=== PATIENT | male | born 1990 | race Two or more races ===

== ENCOUNTER 2021-05-02 13:48 | Inpatient (IN) | payer MEDICAID ==
[~2021-05-02] VITALS: Ht 185.4 cm; Wt 142.2 kg
[2021-05-02] MEDS ORDERED: SODIUM CHLORIDE 0.9% 1,000 ML IV ONE ×2 (14:30→16:45)
[2021-05-02] MEDS ORDERED: ONDANSETRON HCL 4 MG/2 ML VIAL IVP ONE (14:30)
[2021-05-02] MEDS ORDERED: BUPRENORPHINE HCL/NALOXONE HCL 8-2 MG SUBLINGUAL TABLET SL ONE (14:30)
[2021-05-02 14:48] LABS: APPEARANCE,URINE CLEAR (CLEAR); BILIRUBIN,URINE NEGATIVE (NEGATIVE); GLUCOSE, URINE (UA) NEGATIVE (NEGATIVE); KETONES,URINE NEGATIVE (NEGATIVE); LEUKOCYTE ESTERASE ,URINE NEGATIVE (NEGATIVE); NITRATE,URINE NEGATIVE (NEGATIVE); OCCULT BLOOD,URINE NEGATIVE (NEGATIVE); PROTEIN,URINE NEGATIVE (NEGATIVE)
[2021-05-02 14:52] LABS: BASOPHILS % (AUTO) 0.6 % (0.0-2.0); EOSINOPHILS % (AUTO) 1.7 % (1.0-6.0); HEMOGLOBIN 13.8 g/dL (13.5-17.5); LYMPHOCYTES # (AUTO) 1.7 K/uL (1.0-4.8); LYMPHOCYTES % (AUTO) 25.2 % (22.0-44.0); MEAN CORPUSCULAR HGB CONC 33.7 G/dL (31.0-37.0); MEAN CORPUSCULAR VOLUME 89 fL (80-100); MONOCYTES # (AUTO) 0.6 K/uL (0.1-1.0); MONOCYTES % (AUTO) 9.1 % (2.0-9.0); NEUTROPHILS # (AUTO) 4.3 K/uL (1.8-7.7); NEUTROPHILS % (AUTO) 63.4 % (40.0-70.0); PLATELET COUNT (AUTO) 255 K/uL (150-450); RED BLOOD CELL COUNT(AUTO) 4.62 MIL/uL (4.50-5.90); RED CELL DISTRIBUTION WIDTH 13.8 % (11.5-14.5)
[2021-05-02 14:53] LABS: AMPHET/METH SCREEN,URINE POSITIVE (NEGATIVE); BARBITURATE SCREEN, URINE NEGATIVE (NEGATIVE); BENZODIAZEPINES SCREEN,URINE NEGATIVE (NEGATIVE); CANNABINOID SCREEN,URINE POSITIVE (NEGATIVE); COCAINE SCREEN,URINE NEGATIVE (NEGATIVE); METHADONE SCREEN, URINE NEGATIVE (NEGATIVE); OPIATE SCREEN,URINE NEGATIVE (NEGATIVE)
[2021-05-02 14:54] LABS: PHENCYCLIDINE SCREEN,URINE NEGATIVE (NEGATIVE)
[2021-05-02 14:56] LABS: BACTERIA,URINE None Seen /HPF (None Seen); RBC,URINE None Seen /HPF (0-2); WBC,URINE None Seen /HPF (0-5)
[2021-05-02 15:03] LABS: ANION GAP 5 mmol/L (8-16); CALCIUM, TOTAL 9.2 mg/dL (8.8-10.5); CARBON DIOXIDE 33 mmol/L (22-29); CHLORIDE 101 mmol/L (98-107); CREATININE 0.98 mg/dL (0.60-1.30); GLOMERULAR FILTR. RATE CALC > 60 mL/min (>60); GLUCOSE,RANDOM 92 mg/dL (70-110); POTASSIUM 4.1 mmol/L (3.5-5.1); SODIUM SERUM 139 mmol/L (136-145); UREA NITROGEN, BLOOD 14 mg/dL (7-18)
[2021-05-02 15:09] LABS: ALANINE AMINOTRANSFERASE 71 U/L (12-78); ALBUMIN 3.4 g/dL (3.4-5.0); ALKALINE PHOSPHATASE 90 U/L (46-116); ASPARTATE AMINOTRANSFERASE 29 U/L (15-37); BILIRUBIN,TOTAL 0.3 mg/dL (0.1-1.0); TOTAL PROTEIN, SERUM 7.4 g/dL (6.4-8.2)
[2021-05-02] MEDS ORDERED: DOXYCYCLINE HYCLATE 100 MG TABLET PO ONE (16:30)
[2021-05-02] MEDS ORDERED: CEPHALEXIN MONOHYDRATE 500 MG CAPSULE PO ONE (16:30)
[2021-05-02] MEDS: LORazepam 2 MG TABLET PO PRN (17:48)
[2021-05-02] MEDS: HALOPERIDOL 5 MG TABLET PO PRN (17:48)
[2021-05-03 02:01] LABS: CHOL/HDL RATIO 2.8 (4.2-7.3); CHOLESTEROL 137 mg/dL (131-200); HDL CHOLESTEROL 49 mg/dL (40-60); LDL CHOL (CALC.) 76 mg/dL (0-130); TRIGLYCERIDES 58 mg/dL (15-150)
[2021-05-03 05:49] LABS: COVID AG,FIA SOURCE NASOPHARYNGEAL
[2021-05-03 20:25] VITALS: BP 128/95
[2021-05-03] MEDS ORDERED: INFLUENZA VIRUS VACCINE QVS 2021-22 (6MO+)/PF 60 MCG/0.5 ML SYRINGE IM. ONE (20:30)
[2021-05-04] MEDS: NICOTINE 7 MG/24 HOUR PATCH TD PRN (08:32)
[2021-05-04] MEDS: HALOPERIDOL 5 MG TABLET PO PRN ×2 (08:32→15:47)
[2021-05-04] MEDS: LORazepam 2 MG TABLET PO PRN ×2 (08:32→17:25)
[2021-05-04] MEDS: CEPHALEXIN MONOHYDRATE 250 MG CAPSULE PO SCH ×3 (08:32→17:23)
[2021-05-04] MEDS: SULFAMETHOX/TRIMETH DS 800-160 MG/TABLET PO SCH ×2 (08:33→17:20)
[2021-05-04 08:58] VITALS: BP 133/74
[2021-05-04] MEDS ORDERED: NICOTINE 7 MG/24 HOUR PATCH TD SCH (09:00)
[2021-05-04] MEDS ORDERED: OLAN10 PO (11:46)
[2021-05-04] MEDS ORDERED: BUPR100T6 PO (11:46)
[2021-05-04] MEDS ORDERED: PERMETHRIN 5% 60 GM CREAM TP ONE (12:00)
[2021-05-04] MEDS: BuPROPion HCL XL 150 MG ER TABLET PO SCH (14:27)
[2021-05-04 16:32] VITALS: BP 130/83
[2021-05-04] MEDS: ZOLPIDEM TARTRATE 10 MG TABLET PO PRN (20:19)
[2021-05-04] MEDS: OLANZapine 10 MG TABLET PO SCH (20:19)
[2021-05-05 08:17] VITALS: BP 134/85
[2021-05-05] MEDS: CEPHALEXIN MONOHYDRATE 250 MG CAPSULE PO SCH ×3 (08:44→16:22)
[2021-05-05] MEDS: BuPROPion HCL XL 150 MG ER TABLET PO SCH (08:44)
[2021-05-05] MEDS: HALOPERIDOL 5 MG TABLET PO PRN ×2 (08:45→16:22)
[2021-05-05] MEDS: SULFAMETHOX/TRIMETH DS 800-160 MG/TABLET PO SCH ×2 (08:45→16:22)
[2021-05-05] MEDS: LORazepam 2 MG TABLET PO PRN (08:45)
[2021-05-05 16:00] VITALS: BP 130/87
[2021-05-05] MEDS: OLANZapine 10 MG TABLET PO SCH (20:20)
[2021-05-06 08:10] VITALS: BP 127/82
[2021-05-06] MEDS: CEPHALEXIN MONOHYDRATE 250 MG CAPSULE PO SCH ×3 (09:45→16:02)
[2021-05-06] MEDS: MULTIVITAMINS WITH MINERALS, THERAPEUTIC TABLET PO SCH (09:45)
[2021-05-06] MEDS: BuPROPion HCL XL 150 MG ER TABLET PO SCH (09:45)
[2021-05-06] MEDS: SULFAMETHOX/TRIMETH DS 800-160 MG/TABLET PO SCH ×2 (09:45→16:02)
[2021-05-06] MEDS: HALOPERIDOL 5 MG TABLET PO PRN ×2 (09:45→16:02)
[2021-05-06] MEDS: LORazepam 2 MG TABLET PO PRN ×2 (09:45→16:02)
[2021-05-06] MEDS ORDERED: CloNIDine HCL 0.1 MG TABLET PO PRN (16:15)
[2021-05-06] MEDS ORDERED: MAGNESIUM HYDROXIDE SUSPENSION 30 ML UDCUP PO PRN (16:15)
[2021-05-06] MEDS ORDERED: LOPERAMIDE HCL 2 MG CAPSULE PO PRN (16:15)
[2021-05-06] MEDS ORDERED: DOCUSATE SODIUM 100 MG CAPSULE PO PRN (16:15)
[2021-05-06] MEDS ORDERED: PETROLATUM,WHITE 28 GM JELLY TP PRN (16:15)
[2021-05-06] MEDS ORDERED: GuaiFENesin/D-METHORPHAN [SUGAR-FREE] 200-20MG/10 ML SYRUP UDCUP PO PRN (16:15)
[2021-05-06] MEDS ORDERED: MAG HYDROX/AL HYDROX/SIMETH ES 30 ML SUSPENSION UDCUP PO PRN (16:15)
[2021-05-06] MEDS ORDERED: IBUPROFEN 400 MG TABLET PO PRN (16:15)
[2021-05-06] MEDS ORDERED: ALBUTEROL SULFATE HFA 90 MCG/PUFF 8 GM INHALER IH PRN (16:15)
[2021-05-06] MEDS ORDERED: ACETAMINOPHEN 325 MG TABLET PO PRN (16:15)
[2021-05-06] MEDS ORDERED: ONDANSETRON HCL 4 MG TABLET PO PRN (16:15)
[2021-05-06 16:50] VITALS: BP 126/71
[2021-05-06] MEDS: OLANZapine 10 MG TABLET PO SCH (20:16)
[2021-05-06] MEDS: ZOLPIDEM TARTRATE 10 MG TABLET PO PRN (20:16)
[2021-05-07 08:14] VITALS: BP 128/76
[2021-05-07] MEDS: HALOPERIDOL 5 MG TABLET PO PRN ×2 (08:21→16:34)
[2021-05-07] MEDS: SULFAMETHOX/TRIMETH DS 800-160 MG/TABLET PO SCH ×2 (08:21→16:34)
[2021-05-07] MEDS: BuPROPion HCL XL 150 MG ER TABLET PO SCH (08:21)
[2021-05-07] MEDS: MULTIVITAMINS WITH MINERALS, THERAPEUTIC TABLET PO SCH (08:21)
[2021-05-07] MEDS: CEPHALEXIN MONOHYDRATE 250 MG CAPSULE PO SCH ×3 (08:21→16:34)
[2021-05-07] MEDS: LORazepam 2 MG TABLET PO PRN ×2 (08:21→21:16)
[2021-05-07 16:10] VITALS: BP 127/73
[2021-05-07] MEDS: OLANZapine 10 MG TABLET PO SCH (21:16)
[2021-05-08 08:30] VITALS: BP 132/78
[2021-05-08] MEDS: SULFAMETHOX/TRIMETH DS 800-160 MG/TABLET PO SCH ×2 (08:44→16:05)
[2021-05-08] MEDS: MULTIVITAMINS WITH MINERALS, THERAPEUTIC TABLET PO SCH (08:44)
[2021-05-08] MEDS: CEPHALEXIN MONOHYDRATE 250 MG CAPSULE PO SCH ×3 (08:44→16:05)
[2021-05-08] MEDS: BuPROPion HCL XL 150 MG ER TABLET PO SCH (08:44)
[2021-05-08] MEDS: HALOPERIDOL 5 MG TABLET PO PRN ×2 (08:44→16:05)
[2021-05-08] MEDS: LORazepam 2 MG TABLET PO PRN (16:05)
[2021-05-08 16:19] VITALS: BP 138/75
[2021-05-08] MEDS: NICOTINE 7 MG/24 HOUR PATCH TD PRN (17:15)
[2021-05-08] MEDS: OLANZapine 10 MG TABLET PO SCH (20:14)
[2021-05-09 08:00] VITALS: BP 131/76
[2021-05-09] MEDS: BuPROPion HCL XL 150 MG ER TABLET PO SCH (08:49)
[2021-05-09] MEDS: MULTIVITAMINS WITH MINERALS, THERAPEUTIC TABLET PO SCH (08:49)
[2021-05-09] MEDS: CEPHALEXIN MONOHYDRATE 250 MG CAPSULE PO SCH ×3 (08:49→15:59)
[2021-05-09] MEDS: SULFAMETHOX/TRIMETH DS 800-160 MG/TABLET PO SCH ×2 (08:49→15:59)
[2021-05-09] MEDS: HALOPERIDOL 5 MG TABLET PO PRN ×2 (08:51→15:59)
[2021-05-09] MEDS: LORazepam 2 MG TABLET PO PRN ×2 (08:51→16:01)
[2021-05-09] MEDS: NICOTINE 7 MG/24 HOUR PATCH TD PRN (11:36)
[2021-05-09 12:41] LABS: COVID AG,FIA SOURCE NASOPHARYNGEAL
[2021-05-09 16:30] VITALS: BP 122/73
[2021-05-09] MEDS: OLANZapine 10 MG TABLET PO SCH (20:16)
[2021-05-10] MEDS: BuPROPion HCL XL 150 MG ER TABLET PO SCH (08:20)
[2021-05-10] MEDS: NICOTINE 7 MG/24 HOUR PATCH TD PRN (08:20)
[2021-05-10] MEDS: CEPHALEXIN MONOHYDRATE 250 MG CAPSULE PO SCH ×3 (08:20→16:20)
[2021-05-10] MEDS: SULFAMETHOX/TRIMETH DS 800-160 MG/TABLET PO SCH ×2 (08:20→16:20)
[2021-05-10] MEDS: MULTIVITAMINS WITH MINERALS, THERAPEUTIC TABLET PO SCH (08:20)
[2021-05-10 08:22] VITALS: BP 116/75
[2021-05-10 11:35] VITALS: BP 128/75
[2021-05-10] MEDS: LORazepam 2 MG TABLET PO PRN (11:44)
[2021-05-10 13:00] VITALS: BP 114/70
[2021-05-10 16:13] VITALS: BP 136/71
[2021-05-10] MEDS: HALOPERIDOL 5 MG TABLET PO PRN (16:20)
[2021-05-10] MEDS: ZOLPIDEM TARTRATE 10 MG TABLET PO PRN (20:17)
[2021-05-10] MEDS: OLANZapine 10 MG TABLET PO SCH (20:17)
[2021-05-11] MEDS: BuPROPion HCL XL 150 MG ER TABLET PO SCH (08:01)
[2021-05-11] MEDS: SULFAMETHOX/TRIMETH DS 800-160 MG/TABLET PO SCH ×2 (08:01→16:00)
[2021-05-11] MEDS: HALOPERIDOL 5 MG TABLET PO PRN ×2 (08:01→16:00)
[2021-05-11] MEDS: MULTIVITAMINS WITH MINERALS, THERAPEUTIC TABLET PO SCH (08:01)
[2021-05-11] MEDS: CEPHALEXIN MONOHYDRATE 250 MG CAPSULE PO SCH ×3 (08:01→16:00)
[2021-05-11 08:14] VITALS: BP 110/73
[2021-05-11] MEDS: NICOTINE 7 MG/24 HOUR PATCH TD PRN (09:39)
[2021-05-11] MEDS: LORazepam 2 MG TABLET PO PRN (13:59)
[2021-05-11] MEDS: NICOTINE 14 MG/24 HOUR PATCH TD PRN (15:59)
[2021-05-11 16:19] VITALS: BP 137/96
[2021-05-11] MEDS: OLANZapine 10 MG TABLET PO SCH (20:20)
[2021-05-11] MEDS: ZOLPIDEM TARTRATE 10 MG TABLET PO PRN (20:20)
[2021-05-12] MEDS: SULFAMETHOX/TRIMETH DS 800-160 MG/TABLET PO SCH (07:49)
[2021-05-12] MEDS: BuPROPion HCL XL 150 MG ER TABLET PO SCH (07:49)
[2021-05-12] MEDS: CEPHALEXIN MONOHYDRATE 250 MG CAPSULE PO SCH ×2 (07:49→11:54)
[2021-05-12] MEDS: MULTIVITAMINS WITH MINERALS, THERAPEUTIC TABLET PO SCH (07:49)
[2021-05-12] MEDS: NICOTINE 14 MG/24 HOUR PATCH TD PRN (07:51)
[2021-05-12 08:10] VITALS: BP 102/39
[2021-05-12] MEDS: LORazepam 2 MG TABLET PO PRN (11:48)
[2021-05-12] MEDS ORDERED: OLAN10 PO (13:02)
[2021-05-12] MEDS ORDERED: BUPR-49 PO (13:02)
[2021-05-12] MEDS ORDERED: CEPH250 PO (14:01)
[2021-05-12] MEDS ORDERED: SULF-261 PO (14:02)
== END 2021-05-12 15:58 | disposition home or self-care (01) | DRG 750 ==
LOC: EMS 13:54 → 3EC 05-03 17:11
DX: F25.1 Schizoaffective disorder, depressive type (principal); R45.851 Suicidal ideations; L02.416 Cutaneous abscess of left lower limb; E86.0 Dehydration; B86 Scabies; F10.10 Alcohol abuse, uncomplicated; F12.10 Cannabis abuse, uncomplicated; F15.10 Other stimulant abuse, uncomplicated; Z20.822 Contact with and (suspected) exposure to COVID-19; F17.200 Nicotine dependence, unspecified, uncomplicated; F31.9 Bipolar disorder, unspecified; L03.115 Cellulitis of right lower limb; Z59.00 Homelessness unspecified; Z79.899 Other long term (current) drug therapy; Z71.6 Tobacco abuse counseling; Z91.51 Personal history of suicidal behavior
CPT/HCPCS: 80053; 80061; 81001; 83036; 85025; 99285; G0480; J2405; J7030

== ENCOUNTER 2021-05-15 11:59 | Emergency (ER) | payer MEDICAID ==
[~2021-05-15] VITALS: Ht 185.4 cm; Wt 141.8 kg
[~2021-05-15 11:59] MED LIST: BUPR-49 PO; CEPH250 PO; OLAN10 PO; SULF-261 PO
[2021-05-15 12:45] LABS: BASOPHILS % (AUTO) 0.8 % (0.0-2.0); EOSINOPHILS % (AUTO) 0.7 % (1.0-6.0); HEMATOCRIT 40.5 % (41-53); HEMOGLOBIN 13.6 g/dL (13.5-17.5); LYMPHOCYTES % (AUTO) 14.9 % (22.0-44.0); MEAN CORPUSCULAR HEMOGLOBIN 29.8 pg (26.0-34.0); MEAN CORPUSCULAR HGB CONC 33.7 G/dL (31.0-37.0); MEAN CORPUSCULAR VOLUME 89 fL (80-100); MONOCYTES # (AUTO) 0.7 K/uL (0.1-1.0); MONOCYTES % (AUTO) 10.2 % (2.0-9.0); NEUTROPHILS # (AUTO) 4.8 K/uL (1.8-7.7); NEUTROPHILS % (AUTO) 73.4 % (40.0-70.0); PLATELET COUNT (AUTO) 216 K/uL (150-450); RED BLOOD CELL COUNT(AUTO) 4.57 MIL/uL (4.50-5.90); RED CELL DISTRIBUTION WIDTH 13.5 % (11.5-14.5)
[2021-05-15 12:57] LABS: ANION GAP 9 mmol/L (8-16); CALCIUM, TOTAL 8.3 mg/dL (8.8-10.5); CARBON DIOXIDE 30 mmol/L (22-29); CHLORIDE 104 mmol/L (98-107); CREATININE 0.96 mg/dL (0.60-1.30); GLOMERULAR FILTR. RATE CALC > 60 mL/min (>60); GLUCOSE,RANDOM 105 mg/dL (70-110); POTASSIUM 4.3 mmol/L (3.5-5.1); SODIUM SERUM 143 mmol/L (136-145); UREA NITROGEN, BLOOD 13 mg/dL (7-18)
[2021-05-15 13:03] LABS: ALANINE AMINOTRANSFERASE 84 U/L (12-78); ALBUMIN 3.3 g/dL (3.4-5.0); ALKALINE PHOSPHATASE 125 U/L (46-116); ASPARTATE AMINOTRANSFERASE 28 U/L (15-37); BILIRUBIN,TOTAL 0.3 mg/dL (0.1-1.0); TOTAL PROTEIN, SERUM 7.1 g/dL (6.4-8.2)
[2021-05-15 13:12] LABS: AMPHET/METH SCREEN,URINE POSITIVE (NEGATIVE); BARBITURATE SCREEN, URINE NEGATIVE (NEGATIVE); BENZODIAZEPINES SCREEN,URINE NEGATIVE (NEGATIVE); CANNABINOID SCREEN,URINE POSITIVE (NEGATIVE); COCAINE SCREEN,URINE NEGATIVE (NEGATIVE); METHADONE SCREEN, URINE NEGATIVE (NEGATIVE); OPIATE SCREEN,URINE NEGATIVE (NEGATIVE)
[2021-05-15 13:17] LABS: PHENCYCLIDINE SCREEN,URINE NEGATIVE (NEGATIVE)
[2021-05-15 14:59] VITALS: BP 138/75
[2021-05-15] MEDS ORDERED: IBUPROFEN 600 MG TABLET PO ONE (15:00)
== END 2021-05-15 15:40 | disposition home or self-care (01) ==
LOC: EMS 12:02
DX: F19.20 Other psychoactive substance dependence, uncomplicated (principal); F31.9 Bipolar disorder, unspecified; E86.0 Dehydration; F41.9 Anxiety disorder, unspecified; F17.210 Nicotine dependence, cigarettes, uncomplicated; F11.90 Opioid use, unspecified, uncomplicated; Z59.00 Homelessness unspecified; Z88.0 Allergy status to penicillin
CPT/HCPCS: 36415; 80053; 80307; 85025; 99283; G0480

== ENCOUNTER 2021-05-18 03:46 | Inpatient (IN) | payer MEDICAID ==
[~2021-05-18] VITALS: Ht 185.4 cm; Wt 142.0 kg
[2021-05-18] MEDS ORDERED: LORazepam 1 MG TABLET PO ONE (04:45)
[2021-05-18] MEDS ORDERED: BUPRENORPHINE HCL/NALOXONE HCL 8-2 MG SUBLINGUAL TABLET SL ONE (04:45)
[2021-05-18] MEDS ORDERED: DiphenhydrAMINE HCL 25 MG CAPSULE PO ONE (04:45)
[2021-05-18] MEDS ORDERED: OLANZapine 5 MG TABLET PO ONE (04:45)
[2021-05-18 04:52] LABS: COVID AG,FIA SOURCE NASOPHARYNGEAL
[2021-05-18 05:01] LABS: BASOPHILS % (AUTO) 0.8 % (0.0-2.0); EOSINOPHILS % (AUTO) 0.1 % (1.0-6.0); HEMATOCRIT 40.8 % (41-53); HEMOGLOBIN 14.1 g/dL (13.5-17.5); LYMPHOCYTES # (AUTO) 0.3 K/uL (1.0-4.8); LYMPHOCYTES % (AUTO) 8.2 % (22.0-44.0); MEAN CORPUSCULAR HEMOGLOBIN 29.7 pg (26.0-34.0); MEAN CORPUSCULAR HGB CONC 34.6 G/dL (31.0-37.0); MEAN CORPUSCULAR VOLUME 86 fL (80-100); MONOCYTES # (AUTO) 0.2 K/uL (0.1-1.0); NEUTROPHILS # (AUTO) 2.7 K/uL (1.8-7.7); NEUTROPHILS % (AUTO) 83.9 % (40.0-70.0); PLATELET COUNT (AUTO) 127 K/uL (150-450); RED BLOOD CELL COUNT(AUTO) 4.74 MIL/uL (4.50-5.90); RED CELL DISTRIBUTION WIDTH 13.1 % (11.5-14.5)
[2021-05-18 05:04] LABS: ANION GAP 11 mmol/L (8-16); CALCIUM, TOTAL 7.9 mg/dL (8.8-10.5); CARBON DIOXIDE 27 mmol/L (22-29); CHLORIDE 97 mmol/L (98-107); CREATININE 1.03 mg/dL (0.60-1.30); GLOMERULAR FILTR. RATE CALC > 60 mL/min (>60); GLUCOSE,RANDOM 101 mg/dL (70-110); POTASSIUM 3.9 mmol/L (3.5-5.1); SODIUM SERUM 135 mmol/L (136-145); UREA NITROGEN, BLOOD 10 mg/dL (7-18)
[2021-05-18 05:10] LABS: ALANINE AMINOTRANSFERASE 126 U/L (12-78); ALBUMIN 3.1 g/dL (3.4-5.0); ALKALINE PHOSPHATASE 103 U/L (46-116); ASPARTATE AMINOTRANSFERASE 77 U/L (15-37); BILIRUBIN,TOTAL 1.1 mg/dL (0.1-1.0); TOTAL PROTEIN, SERUM 7.1 g/dL (6.4-8.2)
[2021-05-18 09:03] VITALS: BP 139/85
[2021-05-18] MEDS ORDERED: DOCUSATE SODIUM 100 MG CAPSULE PO PRN (13:30)
[2021-05-18] MEDS ORDERED: MAGNESIUM HYDROXIDE SUSPENSION 30 ML UDCUP PO PRN (13:30)
[2021-05-18] MEDS ORDERED: ONDANSETRON HCL 4 MG TABLET PO PRN (13:30)
[2021-05-18] MEDS ORDERED: LOPERAMIDE HCL 2 MG CAPSULE PO PRN (13:30)
[2021-05-18] MEDS ORDERED: ALBUTEROL SULFATE HFA 90 MCG/PUFF 8 GM INHALER IH PRN (13:30)
[2021-05-18] MEDS ORDERED: PETROLATUM,WHITE 28 GM JELLY TP PRN (13:30)
[2021-05-18] MEDS ORDERED: CloNIDine HCL 0.1 MG TABLET PO PRN (13:30)
[2021-05-18] MEDS ORDERED: NICOTINE 14 MG/24 HOUR PATCH TD PRN (13:30)
[2021-05-18] MEDS ORDERED: MAG HYDROX/AL HYDROX/SIMETH ES 30 ML SUSPENSION UDCUP PO PRN (13:30)
[2021-05-18] MEDS ORDERED: GuaiFENesin/D-METHORPHAN [SUGAR-FREE] 200-20MG/10 ML SYRUP UDCUP PO PRN (13:30)
[2021-05-18] MEDS ORDERED: ACETAMINOPHEN 325 MG TABLET PO PRN (13:30)
[2021-05-18] MEDS ORDERED: INFLUENZA VIRUS VACCINE QVS 2021-22 (6MO+)/PF 60 MCG/0.5 ML SYRINGE IM. ONE (14:15)
[2021-05-18 16:10] VITALS: BP 137/69
[2021-05-18] MEDS: OLANZapine 10 MG TABLET PO SCH (20:56)
[2021-05-19] MEDS: BuPROPion HCL XL 150 MG ER TABLET PO SCH (09:00)
[2021-05-19 09:02] LABS: HEMOGLOBIN A1C 5.3 % (3.8-5.6)
[2021-05-19 09:07] LABS: CHOL/HDL RATIO 6.9 (4.2-7.3); THYROID STIMULATING HORMONE 2.6 uIU/mL (0.36-3.74)
[2021-05-19 11:17] VITALS: BP 132/70
[2021-05-19 16:22] VITALS: BP 104/60
[2021-05-19] MEDS: LORazepam 2 MG TABLET PO PRN (17:20)
[2021-05-19] MEDS: HALOPERIDOL 5 MG TABLET PO PRN (17:20)
[2021-05-19] MEDS: ZOLPIDEM TARTRATE 10 MG TABLET PO PRN (21:07)
[2021-05-19] MEDS: OLANZapine 10 MG TABLET PO SCH (21:07)
[2021-05-20 06:43] VITALS: BP 132/83
[2021-05-20 08:38] VITALS: BP 126/92
[2021-05-20] MEDS: BuPROPion HCL XL 150 MG ER TABLET PO SCH (09:37)
[2021-05-20] MEDS: LORazepam 2 MG TABLET PO PRN (09:37)
[2021-05-20] MEDS: HALOPERIDOL 5 MG TABLET PO PRN (09:37)
[2021-05-20 16:24] VITALS: BP 123/75
[2021-05-20] MEDS: OLANZapine 10 MG TABLET PO SCH (21:26)
[2021-05-21 06:10] VITALS: BP 128/79
[2021-05-21 08:37] VITALS: BP 131/68
[2021-05-21] MEDS: BuPROPion HCL XL 150 MG ER TABLET PO SCH (09:49)
[2021-05-21] MEDS: IBUPROFEN 400 MG TABLET PO PRN (12:25)
[2021-05-21] MEDS: LORazepam 2 MG TABLET PO PRN (12:30)
[2021-05-21 16:27] VITALS: BP 112/72
[2021-05-21] MEDS: OLANZapine 10 MG TABLET PO SCH (20:33)
[2021-05-21] MEDS: ZOLPIDEM TARTRATE 10 MG TABLET PO PRN (20:34)
[2021-05-22 02:27] VITALS: BP 130/68
[2021-05-22] MEDS: IBUPROFEN 400 MG TABLET PO PRN ×2 (06:40→15:55)
[2021-05-22 07:40] VITALS: BP 121/71
[2021-05-22] MEDS: BuPROPion HCL XL 150 MG ER TABLET PO SCH (08:21)
[2021-05-22] MEDS: LORazepam 2 MG TABLET PO PRN ×2 (08:33→15:43)
[2021-05-22 08:58] VITALS: BP 121/71
[2021-05-22] MEDS: HALOPERIDOL 5 MG TABLET PO PRN (15:43)
[2021-05-22 16:05] VITALS: BP 116/68
[2021-05-22] MEDS: OLANZapine 10 MG TABLET PO SCH (20:34)
[2021-05-22] MEDS: ZOLPIDEM TARTRATE 10 MG TABLET PO PRN (20:34)
[2021-05-23 06:06] VITALS: BP 119/75
[2021-05-23] MEDS: BuPROPion HCL XL 150 MG ER TABLET PO SCH (08:57)
[2021-05-23] MEDS: IBUPROFEN 400 MG TABLET PO PRN (09:25)
[2021-05-23] MEDS ORDERED: CYANOCOBALAMIN 1,000 MCG/ML VIAL IM ONE (15:15)
[2021-05-23] MEDS: HALOPERIDOL 5 MG TABLET PO PRN (16:05)
[2021-05-23] MEDS: LORazepam 2 MG TABLET PO PRN (16:05)
[2021-05-23 16:29] VITALS: BP 136/84
[2021-05-23] MEDS: OLANZapine 10 MG TABLET PO SCH (21:03)
[2021-05-23] MEDS: ZOLPIDEM TARTRATE 10 MG TABLET PO PRN (21:04)
[2021-05-24 00:53] VITALS: BP 124/86
[2021-05-24 08:28] VITALS: BP 141/82
[2021-05-24] MEDS: BuPROPion HCL XL 150 MG ER TABLET PO SCH (09:02)
[2021-05-24] MEDS: FOLIC ACID 1 MG TABLET PO SCH (09:02)
[2021-05-24] MEDS: LORazepam 2 MG TABLET PO PRN ×3 (09:03→21:39)
[2021-05-24] MEDS: HALOPERIDOL 5 MG TABLET PO PRN ×3 (09:03→21:39)
[2021-05-24] MEDS: THIAMINE 100 MG TABLET PO SCH (09:03)
[2021-05-24 16:21] VITALS: BP 130/75
[2021-05-24] MEDS: OLANZapine 10 MG TABLET PO SCH (21:30)
[2021-05-25 06:08] VITALS: BP 117/70
[2021-05-25 08:22] VITALS: BP 116/68
[2021-05-25] MEDS: FOLIC ACID 1 MG TABLET PO SCH (08:53)
[2021-05-25] MEDS: HALOPERIDOL 5 MG TABLET PO PRN ×2 (08:53→13:43)
[2021-05-25] MEDS: BuPROPion HCL XL 150 MG ER TABLET PO SCH (08:53)
[2021-05-25] MEDS: LORazepam 2 MG TABLET PO PRN ×2 (08:53→13:43)
[2021-05-25] MEDS: THIAMINE 100 MG TABLET PO SCH (08:53)
[2021-05-25 09:29] LABS: GLUCOMETER DEV NAME(LOC) POC.BV
[2021-05-25 16:23] VITALS: BP 111/62
[2021-05-25] MEDS: OLANZapine 10 MG TABLET PO SCH (20:41)
[2021-05-26 06:09] VITALS: BP 123/61
[2021-05-26] MEDS: FOLIC ACID 1 MG TABLET PO SCH (08:03)
[2021-05-26] MEDS: THIAMINE 100 MG TABLET PO SCH (08:03)
[2021-05-26] MEDS: BuPROPion HCL XL 150 MG ER TABLET PO SCH (08:03)
[2021-05-26] MEDS: LORazepam 2 MG TABLET PO PRN ×2 (08:03→12:43)
[2021-05-26] MEDS: HALOPERIDOL 5 MG TABLET PO PRN ×2 (08:05→12:43)
[2021-05-26 08:29] VITALS: BP 122/81
[2021-05-26] MEDS: IBUPROFEN 400 MG TABLET PO PRN (13:28)
[2021-05-26 16:17] VITALS: BP 113/66
[2021-05-26] MEDS: OLANZapine 10 MG TABLET PO SCH (20:51)
[2021-05-26] MEDS: ZOLPIDEM TARTRATE 10 MG TABLET PO PRN (20:51)
[2021-05-27] MEDS: THIAMINE 100 MG TABLET PO SCH (08:10)
[2021-05-27] MEDS: FOLIC ACID 1 MG TABLET PO SCH (08:11)
[2021-05-27] MEDS: BuPROPion HCL XL 150 MG ER TABLET PO SCH (08:11)
[2021-05-27] MEDS: LORazepam 2 MG TABLET PO PRN ×3 (08:14→18:29)
[2021-05-27] MEDS: HALOPERIDOL 5 MG TABLET PO PRN ×3 (08:14→18:29)
[2021-05-27 08:35] VITALS: BP 82/135
[2021-05-27 16:51] VITALS: BP 122/78
[2021-05-27] MEDS: IBUPROFEN 400 MG TABLET PO PRN (18:29)
[2021-05-27] MEDS: OLANZapine 10 MG TABLET PO SCH (20:25)
[2021-05-27] MEDS: ZOLPIDEM TARTRATE 10 MG TABLET PO PRN (20:25)
[2021-05-28 05:26] VITALS: BP 114/64
[2021-05-28] MEDS: BuPROPion HCL XL 150 MG ER TABLET PO SCH (08:26)
[2021-05-28] MEDS: THIAMINE 100 MG TABLET PO SCH (08:26)
[2021-05-28] MEDS: FOLIC ACID 1 MG TABLET PO SCH (08:26)
[2021-05-28] MEDS: LORazepam 2 MG TABLET PO PRN ×2 (08:30→13:38)
[2021-05-28] MEDS: HALOPERIDOL 5 MG TABLET PO PRN ×2 (08:30→13:38)
[2021-05-28 08:38] VITALS: BP 122/72
[2021-05-28 16:19] VITALS: BP 120/70
[2021-05-28] MEDS: OLANZapine 10 MG TABLET PO SCH (20:25)
[2021-05-28] MEDS: ZOLPIDEM TARTRATE 10 MG TABLET PO PRN (20:26)
[2021-05-29 03:27] VITALS: BP 116/68
[2021-05-29 08:33] VITALS: BP 135/86
[2021-05-29] MEDS: FOLIC ACID 1 MG TABLET PO SCH (08:45)
[2021-05-29] MEDS: BuPROPion HCL XL 150 MG ER TABLET PO SCH (08:45)
[2021-05-29] MEDS: THIAMINE 100 MG TABLET PO SCH (08:45)
[2021-05-29] MEDS: HALOPERIDOL 5 MG TABLET PO PRN (08:48)
[2021-05-29] MEDS: LORazepam 2 MG TABLET PO PRN (08:48)
[2021-05-29] MEDS ORDERED: OLAN10 PO (09:40)
[2021-05-29] MEDS ORDERED: BUPR-49 PO (09:40)
== END 2021-05-29 14:25 | disposition home or self-care (01) | DRG 750 ==
LOC: EMS 03:50 → B2S 06:38 → B3A 10:32
DX: F25.1 Schizoaffective disorder, depressive type (principal); N17.9 Acute kidney failure, unspecified; D69.6 Thrombocytopenia, unspecified; L03.115 Cellulitis of right lower limb; E87.1 Hypo-osmolality and hyponatremia; R45.851 Suicidal ideations; F31.9 Bipolar disorder, unspecified; I10 Essential (primary) hypertension; E87.6 Hypokalemia; E66.9 Obesity, unspecified; D72.819 Decreased white blood cell count, unspecified; F11.10 Opioid abuse, uncomplicated; F12.10 Cannabis abuse, uncomplicated; F41.9 Anxiety disorder, unspecified; F15.10 Other stimulant abuse, uncomplicated; Z20.822 Contact with and (suspected) exposure to COVID-19; Z79.899 Other long term (current) drug therapy; Z59.00 Homelessness unspecified; Z87.891 Personal history of nicotine dependence; Z91.51 Personal history of suicidal behavior; Z88.0 Allergy status to penicillin; Z90.49 Acquired absence of other specified parts of digestive tract
CPT/HCPCS: 80053; 80061; 83036; 84443; 85025; 87081; 90686; 99285; G0480; J3420